=== PATIENT | female | born 1990 | race Caucasian/White ===

== ENCOUNTER 2020-10-04 13:51 | Emergency (ER) | payer OTHER ==
[~2020-10-04 13:51] MED LIST: NAPROSYN500 MG PO; ZOFRAN4 MG PO
[2020-10-04 15:04] LABS: BUN/CREATININE RATIO 12 (0-10)
[2020-10-04 15:21] LABS: HEMOGLOBIN 13.7 gm/dl (12.3-15.3); RED BLOOD COUNT 4.51 M/UL (4.00-5.10); WHITE BLOOD COUNT 7.1 K/UL (4.5-11.0)
[2020-10-04] MEDS ORDERED: CEFUROXIME500 MG PO (19:56)
[2020-10-04] MEDS ORDERED: IBUPROFEN800 MG PO (19:56)
[2020-10-27] MEDS ORDERED: HYDROCODON-ACE1 EAC4 PO (08:39)
[2020-10-27] MEDS ORDERED: IBU600 MG PO (08:39)
== END 2020-10-04 20:03 | disposition home or self-care (01) ==
LOC: ER1 13:51
PROVIDERS: Physician Assistant Medical
DX: N39.0 Urinary tract infection, site not specified (principal); Z98.890 Other specified postprocedural states
CPT/HCPCS: 80053; 81001; 82150; 83605; 83690; 84703; 85025; 87086; 96365; 96375; 99284; J0696; J2405; Q9967

== ENCOUNTER → 2020-10-27 | Day surgery (SDC) | payer OTHER ==
[~2020-10-27] MED LIST changes: +CEFUROXIME500 MG PO; +HYDROCODON-ACE1 EAC4 PO; +IBU600 MG PO; +IBUPROFEN800 MG PO; +OMNICEF 300 MG300 MG PO; +PHENERGAN 12.12.5 M1 PO; +PHENERGAN 12.12.5 MG PR
[2020-10-27 06:34] LABS: HEMOGLOBIN 13.4 gm/dl (12.3-15.3); RED BLOOD COUNT 4.42 M/UL (4.00-5.10); WHITE BLOOD COUNT 6.5 K/UL (4.5-11.0)
== END | disposition home or self-care (01) ==
LOC: OR 06:05
PROVIDERS: Obstetrics & Gynecology
PROC: 0U5F4ZZ Destruction of Cul-de-sac, Percutaneous Endoscopic Approach (ICD-10-PCS; principal; 2020-10-27 07:30)
DX: N80.3 Endometriosis of pelvic peritoneum (principal); K66.0 Peritoneal adhesions (postprocedural) (postinfection); K21.9 Gastro-esophageal reflux disease without esophagitis; Z87.891 Personal history of nicotine dependence; Z20.822 Contact with and (suspected) exposure to COVID-19
CPT/HCPCS: 36415; 81001; 84703; 85025; J1100; J1170; J1885; J2250; J2405; J2704; J2795; J3010; J7120

== ENCOUNTER → 2021-01-29 | Outpatient (CLI) | payer OTHER | LOC: LAB 18:19 | DX: Z32.00 Encounter for pregnancy test, result unknown (principal) | CPT/HCPCS: 84702 ==

== ENCOUNTER 2021-02-14 10:55 | Emergency (ER) | payer OTHER ==
[~2021-02-14 10:55] MED LIST changes: -OMNICEF 300 MG300 MG PO; -PHENERGAN 12.12.5 M1 PO; -PHENERGAN 12.12.5 MG PR
[2021-02-14 12:34] LABS: HEMOGLOBIN 13.1 gm/dl (12.3-15.3); RED BLOOD COUNT 4.33 M/UL (4.00-5.10)
[2021-02-14] MEDS ORDERED: PHENERGAN 12.12.5 M1 PO (12:47)
[2021-02-14] MEDS ORDERED: OMNICEF 300 MG300 MG PO (12:47)
[2021-02-14] MEDS ORDERED: PHENERGAN 12.12.5 MG PR (12:47)
[2021-02-14 12:51] LABS: BUN/CREATININE RATIO 12 (0-10)
== END 2021-02-14 14:41 | disposition home or self-care (01) ==
LOC: ER1 10:55
DX: O21.0 Mild hyperemesis gravidarum (principal); O23.11 Infections of bladder in pregnancy, first trimester; Z3A.08 8 weeks gestation of pregnancy
CPT/HCPCS: 80053; 81001; 83690; 85025; 87086; 96374; 96375; 99284; J0696; J2405; J7030

== ENCOUNTER 2021-04-20 13:11 | Emergency (ER) | payer OTHER ==
[~2021-04-20 13:11] MED LIST changes: +OMNICEF 300 MG300 MG PO; +PHENERGAN 12.12.5 M1 PO; +PHENERGAN 12.12.5 MG PR
[2021-04-20 17:53] LABS: HEMOGLOBIN 14.2 gm/dl (12.3-15.3); RED BLOOD COUNT 4.64 M/UL (4.00-5.10); WHITE BLOOD COUNT 6.3 K/UL (4.5-11.0)
[2021-04-20 18:11] LABS: BUN/CREATININE RATIO 10 (0-10)
== END 2021-04-20 21:05 | disposition home or self-care (01) ==
LOC: ER1 13:11
PROVIDERS: Physician Assistant Medical
DX: O98.512 Other viral diseases complicating pregnancy, second trimester (principal); U07.1 COVID-19; Z3A.16 16 weeks gestation of pregnancy
CPT/HCPCS: 71045; 80053; 85025; 99285

== ENCOUNTER 2021-06-07 21:51 | Outpatient (CLI) | payer OTHER | END 2021-06-08 00:25 | disposition home or self-care (01) | LOC: GENOP 21:51 | DX: O99.891 Other specified diseases and conditions complicating pregnancy (principal); R10.30 Lower abdominal pain, unspecified; Z3A.22 22 weeks gestation of pregnancy | CPT/HCPCS: 81001; 96360; J7120 ==

== ENCOUNTER 2021-07-31 18:59 | Outpatient (CLI) | payer OTHER | END 2021-08-01 00:11 | disposition home or self-care (01) | LOC: GENOP 18:59 | DX: O99.891 Other specified diseases and conditions complicating pregnancy (principal); M54.50 Low back pain, unspecified; R10.30 Lower abdominal pain, unspecified; O21.2 Late vomiting of pregnancy; Z3A.22 22 weeks gestation of pregnancy | CPT/HCPCS: 59025; 81001; 82731; 96360; 96361; 96367; 96372; 96374; J0702; J2405; J2550; J3105 ==

== ENCOUNTER 2021-08-08 14:12 | Emergency (ER) | payer OTHER ==
[2021-08-08 17:03] LABS: HEMOGLOBIN 13.2 gm/dl (12.3-15.3); RED BLOOD COUNT 4.33 M/UL (4.00-5.10); WHITE BLOOD COUNT 12.7 K/UL (4.5-11.0)
[2021-08-08 17:26] LABS: BUN/CREATININE RATIO 9 (0-10)
== END 2021-08-08 20:45 | disposition home or self-care (01) ==
LOC: ER1 14:12 → GENOP 14:12 → ER1 14:12 → EDSTATUS 14:23 → ER1 20:45
PROVIDERS: Physician Assistant Medical
DX: O99.283 Endocrine, nutritional and metabolic diseases complicating pregnancy, third trimester (principal); E16.2 Hypoglycemia, unspecified; O99.891 Other specified diseases and conditions complicating pregnancy; R55 Syncope and collapse; Z3A.31 31 weeks gestation of pregnancy
CPT/HCPCS: 80053; 81001; 82550; 82553; 82962; 83874; 84484; 85025; 93005; 99284; J7030

== ENCOUNTER 2021-08-21 22:17 | Outpatient (CLI) | payer OTHER ==
[2021-08-21 23:11] LABS: HEMOGLOBIN 11.8 gm/dl (12.3-15.3); RED BLOOD COUNT 3.84 M/UL (4.00-5.10); WHITE BLOOD COUNT 10.5 K/UL (4.5-11.0)
== END 2021-08-22 00:13 | disposition home or self-care (01) ==
LOC: GENOP 22:17
PROVIDERS: Obstetrics & Gynecology
DX: O47.03 False labor before 37 completed weeks of gestation, third trimester (principal); O16.3 Unspecified maternal hypertension, third trimester; O99.891 Other specified diseases and conditions complicating pregnancy; R51.9 Headache, unspecified; Z3A.33 33 weeks gestation of pregnancy
CPT/HCPCS: 59025; 81001; 82247; 82248; 82565; 82570; 82731; 84156; 84450; 84460; 84550; 85025; 85379; 85384; 85610; 85730

== ENCOUNTER 2021-09-17 23:51 | Inpatient (IN) | payer OTHER ==
[~2021-09-17] VITALS: Ht 162.6 cm; Wt 72.6 kg
[2021-09-18] MEDS ORDERED: PRENATA CHEWAB1 EACH PO (03:04)
[2021-09-18] MEDS ORDERED: TUMS200 MG PO (03:05)
[2021-09-18 06:39] LABS: HEMOGLOBIN 13.6 gm/dl (12.3-15.3); RED BLOOD COUNT 4.45 M/UL (4.00-5.10); WHITE BLOOD COUNT 12.8 K/UL (4.5-11.0)
[2021-09-19 07:12] LABS: HEMOGLOBIN 11.6 gm/dl (12.3-15.3)
== END 2021-09-20 11:27 | disposition home or self-care (01) | DRG 807 ==
LOC: GENOP 23:51 → OB 09-18 00:34
PROVIDERS: Obstetrics & Gynecology; ADMIT Obstetrics & Gynecology
PROC: 10E0XZZ Delivery of Products of Conception, External Approach (ICD-10-PCS; principal; 2021-09-18)
PROC: 0HQ9XZZ Repair Perineum Skin, External Approach (ICD-10-PCS; 2021-09-18)
PROC: 4A1HXCZ Monitoring of Products of Conception, Cardiac Rate, External Approach (ICD-10-PCS; 2021-09-18)
PROC: 3E0234Z Introduction of Serum, Toxoid and Vaccine into Muscle, Percutaneous Approach (ICD-10-PCS; 2021-09-18)
PROC: 3E02340 Introduction of Influenza Vaccine into Muscle, Percutaneous Approach (ICD-10-PCS; 2021-09-18)
DX: O42.92 Full-term premature rupture of membranes, unspecified as to length of time between rupture and onset of labor (principal); Z37.0 Single live birth; Z3A.37 37 weeks gestation of pregnancy; Z20.822 Contact with and (suspected) exposure to COVID-19; O70.0 First degree perineal laceration during delivery; Z23 Encounter for immunization
CPT/HCPCS: 81001; 82800; 85014; 85018; 85025; 90686; 90715; J2590; J7120; U0002

== ENCOUNTER → 2022-05-31 | Outpatient (CLI) | payer OTHER ==
[~2022-05-31] MED LIST changes: +BUSPIRONE HCL7.5 MG PO; +ETONOGESTREL-E1 EACH VG; +PRENATA CHEWAB1 EACH PO; +PROZAC 20 MG CA20 MG PO; +TUMS200 MG PO
[2022-05-31 11:05] LABS: HEMOGLOBIN 13.7 gm/dl (12.3-15.3); RED BLOOD COUNT 4.57 M/UL (4.00-5.10); WHITE BLOOD COUNT 6.3 K/UL (4.5-11.0)
== END ==
LOC: OPSV2 10:00
PROVIDERS: Obstetrics & Gynecology
DX: Z01.812 Encounter for preprocedural laboratory examination (principal); N93.9 Abnormal uterine and vaginal bleeding, unspecified
CPT/HCPCS: 36415; 81001; 85025